=== PATIENT | male | born 1935 | race Caucasian/White ===

== ENCOUNTER 2021-01-24 16:03 | Emergency (ER) | payer MEDICARE ==
[2021-01-24] MEDS ORDERED: Sodium Chloride 0.9% 2.5 ML Syringe FLUSH PRN (16:10)
[2021-01-24] MEDS ORDERED: Sodium Chloride 0.9% 10 ML Syringe FLUSH PRN (16:10)
--- NOTE | 2021-01-24 16:10 | EDM.PDOC ---
ED HPI GENERAL MEDICAL PROBLEM - General Chief Complaint: Trauma Stated Complaint: EMS Time Seen by Provider: 01/24/21 16:09 Source of Information: Reports: Patient History Limitations: Reports: No Limitations - History of Present Illness INITIAL COMMENTS - FREE TEXT/NARRATIVE: 88-year-old male past medical history hypothyroidism, A. fib, Parkinson's disease presents status post fall. Patient was across the street at the / building when he fell landing on his right side. He is unsure if he had his head. He notes pain to his right hip. EMS was called and they transported him to the hospital. Denies any loss of consciousness. Right Hip Pain Score (Numeric/FACES): 6 - Related Data Allergies Allergy/AdvReac Type Severity Reaction Status Date / Time oxycodone Allergy Cannot Verified 01/24/21 16:11 Remember Home Meds: Home Meds Carbidopa/Levodopa [Carbidopa-Levodopa 25-100] 1 tab PO DAILY 01/24/21 [History] Digoxin 125 mcg PO DAILY 01/24/21 [History] Doxazosin Mesylate [Cardura] 8 mg PO DAILY 01/24/21 [History] Finasteride [Proscar] 5 mg PO DAILY 01/24/21 [History] Levothyroxine 25 mcg PO DAILY 01/24/21 [History] Metoprolol Succinate 50 mg PO DAILY 01/24/21 [History] Warfarin Sodium 5 mg PO DAILY 01/24/21 [History] Review of Systems - Review of Systems Review Of Systems: Comprehensive ROS is negative, except as noted in HPI. ED EXAM, GENERAL - Physical Exam Exam: See Below Exam Limited By: No Limitations General Appearance: Alert, WD/WN, No Apparent Distress Eye Exam: Bilateral Eye: EOMI, PERRL Ears: Normal External Exam Throat/Mouth: Normal Voice, No Airway Compromise Head: Atraumatic, Normocephalic Neck: Normal Inspection Respiratory/Chest: No Respiratory Distress, Lungs Clear, Normal Breath Sounds, No Accessory Muscle Use Cardiovascular: Normal Peripheral Pulses, Regular Rate, Rhythm GI/Abdominal: Soft, Non-Tender Back Exam: Normal Inspection Extremities: Normal Inspection, Non-Tender, Other (no pelvic TTP, normal leg length b/l, normal passive ROM b/l LE without pain ) Neurological: Alert Psychiatric: Normal Affect, Normal Mood Skin Exam: Warm, Dry, Intact, Normal Color #1 Interpretation EKG Date: 01/24/21 Time: 16:04 Rhythm: A-Fib Rate (Beats/Min): 63 [place]: Normal QRS: Normal ST-T: Normal QT: Normal Comparison: NA - No Prior EKG EKG Interpretation Comments: no ischemic changes Course - Vital Signs Last Recorded V/S: Last Vital Signs Temp 97.7 F 01/24/21 16:00 Pulse 84 01/24/21 17:34 Resp 16 01/24/21 16:51 BP 140/63 01/24/21 17:34 Pulse Ox 97 01/24/21 17:34 - Orders/Labs/Meds Orders: Active Orders 24 hr Category Date Time Status Cardiac Monitoring [RC] . DIRECTED Care 01/24/21 16:11 Active EKG Documentation Completion [RC] STAT Care 01/24/21 16:10 Active Pulse Oximetry [RC] ASDIRECTED Care 01/24/21 16:11 Active CORONAVIRUS COVID-19 MCKENNA [MOLEC] Stat Lab 01/24/21 17:43 Ordered UA W/FRANKY RFLX IF INDICATED [URIN] Stat Lab 01/24/21 16:11 Ordered Sodium Chloride 0.9% [Saline Flush] Med 01/24/21 16:10 Active 10 ml FLUSH ASDIRECTED PRN Sodium Chloride 0.9% [Saline Flush] Med 01/24/21 16:10 Active 2.5 ml FLUSH ASDIRECTED PRN Saline Lock Insert [OM.PC] Stat Oth 01/24/21 16:11 Ordered Medication Orders Sodium Chloride (Sodium Chloride 0.9% 10 Ml Syringe) 10 ml FLUSH ASDIRECTED PRN PRN Reason: Keep Vein Open Last Admin: 01/24/21 16:26 Dose: 10 ml Documented by: RHONDA Sodium Chloride (Sodium Chloride 0.9% 2.5 Ml Syringe) 2.5 ml FLUSH ASDIRECTED PRN PRN Reason: Keep Vein Open Last Admin: 01/24/21 16:26 Dose: 2.5 ml Documented by: RHONDA Labs: Laboratory Tests 01/24/21 01/24/21 01/24/21 Range/Units 16:15 16:15 16:15 WBC 6.14 (4.0-11.0) K/uL RBC 4.19 L (4.50-5.90) M/uL Hgb 12.3 L (13.0-17.0) g/dL Hct 38.6 (38.0-50.0) % MCV 92.1 (80.0-98.0) fL MCH 29.4 (27.0-32.0) pg MCHC 31.9 (31.0-37.0) g/dL RDW Std Deviation 46.6 (28.0-62.0) fl RDW Coeff of Marleni 14 (11.0-15.0) % Plt Count 126 L (150-400) K/uL MPV 9.90 (7.40-12.00) fL Neut % (Auto) 70.0 (48.0-80.0) % Lymph % (Auto) 19.4 (16.0-40.0) % [place] % (Auto) 8.6 (0.0-15.0) % Eos % (Auto) 1.8 (0.0-7.0) % Baso % (Auto) 0.2 (0.0-1.5) % Neut # (Auto) 4.3 (1.4-5.7) K/uL Lymph # (Auto) 1.2 (0.6-2.4) K/uL Collier # (Auto) 0.5 (0.0-0.8) K/uL Eos # (Auto) 0.1 (0.0-0.7) K/uL Baso # (Auto) 0.0 (0.0-0.1) K/uL INR 2.61 APTT 32.1 H (18.6-31.3) SEC Lactate 1.7 (0.20-2.00) mmol/L Sodium (136-148) mmol/L Potassium (3.5-5.1) mmol/L Chloride (98-107) mmol/L Carbon Dioxide (21.0-32.0) mmol/L BUN (7.0-18.0) mg/dL Creatinine (0.8-1.3) mg/dL Est Cr Clr Drug Dosing mL/min Estimated GFR (MDRD) ml/min Glucose (74-106) mg/dL Calcium (8.5-10.1) mg/dL Magnesium (1.8-2.4) mg/dL Total Bilirubin (0.2-1.0) mg/dL AST (15-37) IU/L ALT (14-63) IU/L Alkaline Phosphatase (46-116) U/L Troponin I (0.000-0.056) ng/mL B-Natriuretic Peptide (<100) PG/ML Total Protein (6.4-8.2) g/dL Albumin (3.4-5.0) g/dL Globulin (2.6-4.0) g/dL Albumin/Globulin Ratio (0.9-1.6) 01/24/21 01/24/21 Range/Units 16:15 16:15 WBC (4.0-11.0) K/uL RBC (4.50-5.90) M/uL Hgb (13.0-17.0) g/dL Hct (38.0-50.0) % MCV (80.0-98.0) fL MCH (27.0-32.0) pg MCHC (31.0-37.0) g/dL RDW Std Deviation (28.0-62.0) fl RDW Coeff of Marleni (11.0-15.0) % Plt Count (150-400) K/uL MPV (7.40-12.00) fL Neut % (Auto) (48.0-80.0) % Lymph % (Auto) (16.0-40.0) % [place]lier % (Auto) (0.0-15.0) % Eos % (Auto) (0.0-7.0) % Baso % (Auto) (0.0-1.5) % Neut # (Auto) (1.4-5.7) K/uL Lymph # (Auto) (0.6-2.4) K/uL Collier # (Auto) (0.0-0.8) K/uL Eos # (Auto) (0.0-0.7) K/uL Baso # (Auto) (0.0-0.1) K/uL INR APTT (18.6-31.3) SEC Lactate (0.20-2.00) mmol/L Sodium 141 (136-148) mmol/L Potassium 4.4 (3.5-5.1) mmol/L Chloride 106 (98-107) mmol/L Carbon Dioxide 26.2 (21.0-32.0) mmol/L BUN 27 H (7.0-18.0) mg/dL Creatinine 1.8 H (0.8-1.3) mg/dL Est Cr Clr Drug Dosing 32.11 mL/min Estimated GFR (MDRD) 36.2 ml/min Glucose 95 (74-106) mg/dL Calcium 8.4 L (8.5-10.1) mg/dL Magnesium 2.3 (1.8-2.4) mg/dL Total Bilirubin 0.8 (0.2-1.0) mg/dL AST 24 (15-37) IU/L ALT 16 (14-63) IU/L Alkaline Phosphatase 68 (46-116) U/L Troponin I < 0.050 (0.000-0.056) ng/mL B-Natriuretic Peptide 336 H (<100) PG/ML Total Protein 7.5 (6.4-8.2) g/dL Albumin 3.7 (3.4-5.0) g/dL Globulin 3.8 (2.6-4.0) g/dL Albumin/Globulin Ratio 1.0 (0.9-1.6) Meds: Medications Generic Name Dose Route Start Last Admin Trade Name Freq PRN Reason Stop Dose Admin Sodium Chloride 10 ml 01/24/21 16:10 01/24/21 16:26 Sodium Chloride 0.9% 10 Ml Syringe FLUSH 10 ml ASDIRECTED PRN Administration Keep Vein Open Sodium Chloride 2.5 ml 01/24/21 16:10 01/24/21 16:26 Sodium Chloride 0.9% 2.5 Ml Syringe FLUSH 2.5 ml ASDIRECTED PRN Administration Keep Vein Open - Re-Assessments/Exams Free Text/Narrative Re-Assessment/Exam: 01/24/21 16:[address] imaging of the head and neck. Will get chest and pelvis x-ray as well as right hip x-ray to rule fracture. Will get labs. 01/24/21 17:47 Patient with right femoral neck fracture. Will transfer to [facility] for further workup and management as we do not have orthopedics available. Dr. Cottrell accepts. Departure - Departure Time of Disposition: 17:47 Disposition: DC/Tfer to Acute Hospital 02 Condition: Good Clinical Impression: Femoral neck fracture Qualifiers: Encounter type: initial encounter Fracture type: closed Laterality: right Qualified Code(s): S72.001A - Fracture of unspecified part of neck of right femur, initial encounter for closed fracture - Discharge Information Referrals: Abhishek Hager MD [Primary Care Provider] - Forms: ED Department Discharge Sepsis Event Note (ED) - Focused Exam Vital Signs: Vital Signs Temp Pulse Resp BP Pulse Ox 01/24/21 17:34 84 140/63 97 01/24/21 17:20 83 132/89 94 L 01/24/21 16:51 88 16 151/73 H 94 L 01/24/21 16:00 97.7 F 89 20 120/76 94 L - My Orders Last 24 Hours: My Active Orders 01/24/21 16:10 EKG Documentation Completion [RC] STAT Sodium Chloride 0.9% [Saline Flush] 10 ml FLUSH ASDIRECTED PRN Sodium Chloride 0.9% [Saline Flush] 2.5 ml FLUSH ASDIRECTED PRN 01/24/21 16:11 Cardiac Monitoring [RC] . DIRECTED Pulse Oximetry [RC] ASDIRECTED UA W/FRANKY RFLX IF INDICATED [URIN] Stat Saline Lock Insert [OM.PC] Stat 01/24/21 17:43 CORONAVIRUS COVID-19 MCKENNA [MOLEC] Stat - Assessment/Plan Last 24 Hours: My Active Orders 01/24/21 16:10 EKG Documentation Completion [RC] STAT Sodium Chloride 0.9% [Saline Flush] 10 ml FLUSH ASDIRECTED PRN Sodium Chloride 0.9% [Saline Flush] 2.5 ml FLUSH ASDIRECTED PRN 01/24/21 16:11 Cardiac Monitoring [RC] . DIRECTED Pulse Oximetry [RC] ASDIRECTED UA W/FRANKY RFLX IF INDICATED [URIN] Stat Saline Lock Insert [OM.PC] Stat 01/24/21 17:43 CORONAVIRUS COVID-19 MCKENNA [MOLEC] Stat
[2021-01-24 17:00] LABS: BLOOD UREA NITROGEN,BUN 27 mg/dL (7.0-18.0); CARBON DIOXIDE,CO2 26.2 mmol/L (21.0-32.0); CHLORIDE,CL 106 mmol/L (98-107); GLUCOSE RANDOM 95 mg/dL (74-106); POTASSIUM,K 4.4 mmol/L (3.5-5.1); SODIUM,NA 141 mmol/L (136-148)
--- NOTE | 2021-01-24 17:02 | CT ---
INDICATION: Fall. TECHNIQUE: CT of the head without contrast. Coronal and sagittal reformats are included. COMPARISON: None. FINDINGS: No acute intracranial hemorrhage. No mass effect or midline shift. No hydrocephalus or extra-axial collections. Patchy white matter hypoattenuation, typical for chronic microvascular ischemic changes. 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 Thick vascular calcifications carotid siphons and left intradural vertebral artery. No acute osseous abnormalities. Mastoid air cells and paranasal sinuses are clear. Normal soft tissues. IMPRESSION: 1. No acute intracranial pathology. 2. Chronic microvascular ischemic changes within the supratentorial white matter. 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 Please note that all CT scans at this facility use dose modulation, iterative reconstruction, and/or weight-based dosing when appropriate to reduce radiation dose to as low as reasonably achievable. Dictated by Lui Shah MD @ Jan 24 2021 4:56PM Signed by Dr. Lui Shah @ Jan 24 2021 5:01PM
--- NOTE | 2021-01-24 17:06 | CT ---
INDICATION: Fall. TECHNIQUE: CT of the cervical spine without contrast. Coronal and sagittal reformats are included. COMPARISON: None. FINDINGS: No acute fracture or traumatic malalignment of the cervical spine. Craniocervical junction alignment is maintained. Cervical spondylosis with moderate to advanced disc degeneration at C3-4 through C6-7. Patchy lucencies throughout the cervical spine, likely representing osteoporosis. Uncovertebral/facet arthrosis at multiple levels contributes to high-grade neural foraminal stenosis at C3-4 on the left, C4-5 on the right, C5-6 bilaterally, and C6-7 on the right. Imaged intracranial structures, cervical and paraspinous soft tissues are normal in appearance. The visualized pulmonary apices are clear. IMPRESSION: 1. No acute fracture or traumatic malalignment of the cervical spine. 2. Widespread cervical spondylosis. Please note that all CT scans at this facility use dose modulation, iterative reconstruction, and/or weight-based dosing when appropriate to reduce radiation dose to as low as reasonably achievable. Dictated by Lui Sahh MD @ Jan 24 2021 5:01PM Signed by Dr. Lui Shah @ Jan 24 2021 5:06PM
--- NOTE | 2021-01-24 17:29 | CR ---
Indication: Fall Technique: Chest 1 view Comparison: None Findings/Impression: Mild cardiomegaly and pulmonary cephalization. Calcified granuloma in the right midlung. No pneumothorax. Patchy atelectasis or infiltrate at the medial right lung base. No acute osseous abnormality. Dictated by Karon Guthrie MD @ Jan 24 2021 5:26PM Signed by Dr. Karon Guthrie @ Jan 24 2021 5:27PM
--- NOTE | 2021-01-24 17:38 | CR ---
Indication: Fall Technique: Frontal view pelvis, two-view right Comparison: None Findings: Bones: Mildly comminuted, mildly impacted fracture through the right femoral neck. Joint spaces: Mild degenerative changes in both hip joints. Soft tissues: Unremarkable. Impression: Mildly comminuted, mildly impacted fracture through the right femoral neck. Dictated by Karon Guthrie MD @ Jan 24 2021 5:33PM Signed by Dr. Karon Guthrie @ Jan 24 2021 5:35PM
== END 2021-01-24 19:10 ==
LOC: EDBD 16:03 → MW.ED 16:03
DX: S72.001A Fracture of unspecified part of neck of right femur, initial encounter for closed fracture (principal); I48.91 Unspecified atrial fibrillation; E03.9 Hypothyroidism, unspecified; G20 Parkinson's disease; Z88.5 Allergy status to narcotic agent; Z79.899 Other long term (current) drug therapy; Z79.01 Long term (current) use of anticoagulants; Z20.822 Contact with and (suspected) exposure to COVID-19; W19.XXXA Unspecified fall, initial encounter
CPT/HCPCS: 36415; 70450; 71045; 72125; 73502; 80053; 83605; 83735; 83880; 84484; 85025; 85610; 85730; 93005; 99285; U0002; 93010; 99284